=== PATIENT | female | born 1985 | race Caucasian/White ===

== ENCOUNTER 2020-02-26 14:54 | Emergency (ER) | payer BC, SELFPAY ==
--- NOTE | ~2020-02-26 | XR_ITS ---
EXAMINATION: XR knee RT min 4V DATE: 02/26/2020 15:38 INDICATION: Right knee injury and pain. TECHNIQUE: 4 views of right knee were obtained. COMPARISON: None. FINDINGS: Bone alignment is normal. No fracture. There is mild osteoarthritis of medial compartment c haracterized by tiny marginal osteophytes. There is a small knee joint effusion.. IMPRESSION: 1. Mild right knee osteoarthritis. 2. Small right knee joint effusion. Reviewed, dictated and finalized at location A.
[2020-02-26 15:12] VITALS: BP 126/82; PULSE 80; RESP 16; TEMP 36.8; O2SAT 100
--- NOTE | 2020-02-26 15:49 | ED.LOWEXIN ---
HPI - Extremity Injury (Lower) General Chief Complaint: Extremity Injury, Lower Stated Complaint: Extremity Injury, Lower Time Seen by Provider: 02/26/20 15:49 Source: patient and RN notes reviewed Mode of arrival: ambulatory Limitations: no limitations History of Present Illness HPI Narrative: 34 year old female who presents to express care with complaints of righpain since falling on her knee Monday when she tripped on sidewalk. Patient states that pain is aggravated by weight bearing and bending of her knee with pain voiced to lateral aspect of her right knee below patella which radiates to back of her knee, minimal swelling noted to knee with no redness, warmth, or ecchymosis noted. Patient states that she has been applying ice and heat to her knee and has taken some Ibuprofen for her discomfort. Patient states that she his on her feet a lot at work and feels that she is unable to work with her knee discomfort. MD complaint: knee injury Onset (ago): day(s) (3) Injury: Right: knee Type of Injury: blunt Place: street/outdoors Severity: moderate Severity scale (1-10): 6 Relieving factors: nothing Exacerbating factors: weight bearing Context: fall Associated symptoms: able to partially bear weight and other (pain with bending knee) Other symptoms: none Treatments prior to arrival: cold therapy, NSAIDS and other (heat) Related Data Home Medications Medication Instructions Recorded Confirmed escitalopram oxalate 10 mg PO DAILY 02/26/20 02/26/20 hydroxyzine HCl 25 mg PO DAILY 02/26/20 02/26/20 Allergies Allergy/AdvReac Type Severity Reaction Status Date / Time Sulfa (Sulfonamide Allergy Unknown Rash Unverified 02/26/20 15:34 Antibiotics) Review of Systems Review of Systems: Narrative: CONSTITUTIONAL: Denies fever, chills, or sweats. EYES: Denies visual changes, redness, or discharge. ENT: Denies rhinorrhea, congestion, sore throat, or otalgia. CARDIOVASCULAR: Denies chest pain, palpitations, or edema. RESPIRATORY: Denies cough or dyspnea. GASTROINTESTINAL: Denies abdominal pain, nausea, vomiting, or diarrhea. GENITOURINARY: Denies dysuria or hematuria. SKIN: Denies rash or itching. MUSCULOSKELETAL: Denies back pain,positive for right knee joint pain, or myalgia. NEUROLOGIC: Denies headache, numbness, or weakness. PSYCHIATIC: Positive for anxiety or depression. All systems reviewed & are unremarkable except as noted in HPI and below PMFSH Past Medical History Medical History (Updated 02/28/20 @ 11:56 by Shea Santana NP) Anxiety and depression Deficient knowledge of lower extremity surgery Right knee pain Social History Social History (Updated 02/28/20 @ 11:51 by Shea Santana NP) Smoking packs per day: 0.25 Smoking cigarettes per day: 5.0 Alcohol intake: unknown Substance use: unknown Living arrangements: with family Gender identity (if verbalized by the patient): Female Comments At time of signature, agree with nursing past medical, surgical and socialhistory. There is no relevant family history pertinent to the presenting complaint Exam Narrative: Exam Narrative: GENERAL: Well-appearing, well-nourished, and in no acute distress. HEAD: Normocephalic, atraumatic. EYES: PERRLA and EOMI. ENT: Nares clear, no rhinorrhea or epistaxis. Mucous membranes moist. NECK: Supple.no lymphadenopathy CHEST: Clear to auscultation. No respiratory distress. HEART: Regular rate and rhythm. No murmur heard. Normal peripheral pulses. ABDOMEN: Soft, nontender, nondistended, normal active bowel sounds. EXTREMITIES: Normal range of motion. No edema with exception to right knee with small amount of edema noted to knee, pain to right lateral knee area below patella with increase pain with weight bearing and bending with some radiation of pain to back of her knee, Patient has negative drawer test, no increase in pain with inversion or eversion maneuvers,no warmth, redness or ecchymosis noted to knee. SKIN: Warm, d
== END 2020-02-26 16:11 | disposition home or self-care (01) ==
PROVIDERS: Emergency Provider Registered Nurse; PCP Physician Assistant
DX: M25.561 Pain in right knee (principal)
CPT/HCPCS: 73564; 99203; G0463

== ENCOUNTER 2021-10-12 08:54 | Outpatient (RCR) | payer BC, SELFPAY ==
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
--- NOTE | 2021-10-27 15:46 | PCPTNOTE ---
Pt was positive for the following tests on 10/27/21 for the R knee: - Mary's (medial and lateral meniscus focused) - Anterior Drawer (severe pain and facial apprehension) - Alisa's - Varus Stress (0 and 30 degrees) w/ lateral knee pain - Valgus Stress (0 and 30 degrees) w/ more pain medially laterally than medially - Palpation to the medial and lateral knee joint line cause a significant increase in pain, more laterally than medially When considering the above tests are positive, it can be postulated that the ACL, medial and lateral menisci, LCL, and MCL of the R knee could have tears of varying degrees. The patient is concerned that her continued high levels of pain, functional impairment with walking, stairs, standing up from sitting, and driving, as well as a lack of noticeable improvement over her course of therapy may warrant the need for additional treatment beyond physical therapy. It would be helpful for the patient to have an MRI completed for her physician to assess the integrity of the soft tissue structures within the R knee that are in question for the patient to reduce her functional impairment. The patient is open to surgery if necessary to repair or replace potentially damaged soft tissue in her knee.
--- NOTE | 2021-12-27 16:39 | PCPTNOTE ---
Mrs. Hernández attended a total of 6 treatment sessions from 10/12/21 to 11/02/21. She has failed to return to the clinic and will be discharged from our care at this time. Refer to pt. last daily note for discharge status.
== END 2021-11-02 14:28 | disposition home or self-care (01) ==
LOC: CHSPT 08:54
PROVIDERS: PCP Physician Assistant; Visit Provider Physician Assistant
DX: M25.561 Pain in right knee (principal)
CPT/HCPCS: 97014; 97016; 97110; 97161; 97530; G0283